=== PATIENT | female | born 1960 | race Caucasian/White ===

== ENCOUNTER 2018-01-18 06:45 | Day surgery (SDC) | payer OTHER ==
[~2018-01-18] VITALS: Ht 162.6 cm; Wt 77.9 kg
[~2018-01-18 06:45] MED LIST: No meds per pt.
[2018-01-18] MEDS ORDERED: EPINEPHRINE 1 MG/ML, 1ML ONE (06:50)
[2018-01-18] MEDS ORDERED: BUPIVACAINE/PF 0.25% ONE (06:50)
[2018-01-18] MEDS ORDERED: HEPARIN 1,000 UNITS/ML, 10ML ONE (06:50)
[2018-01-18] MEDS ORDERED: LIDOCAINE-MPF 1%, 2ML ONE (07:40)
[2018-01-18 07:54] VITALS: BP 130/81
[2018-01-18] MEDS ORDERED: ACETAMINOPHEN 500 MG TABLET PO ONE (08:00)
[2018-01-18] MEDS ORDERED: OxyconTIN ER 20 MG TAB.ER PO ONE (08:00)
[2018-01-18] MEDS ORDERED: GABAPENTIN 300 MG CAPSULE PO ONE (08:00)
[2018-01-18] MEDS ORDERED: LACTATED RINGERS 1,000 ML IV SCH (08:05)
[2018-01-18] MEDS ORDERED: MIDAZOLAM 1 MG/ML, 2ML ONE (08:07)
[2018-01-18] MEDS ORDERED: SUCCINYLCHOLINE 20 MG/ML, 10ML ONE (08:08)
[2018-01-18] MEDS ORDERED: FENTANYL PF 250 MCG/5ML ONE (08:08)
[2018-01-18] MEDS ORDERED: GLYCOPYRROLATE 0.2MG/1ML, 5ML ONE (08:08)
[2018-01-18] MEDS ORDERED: PROPOFOL 10 MG/ML, 20ML ONE (08:08)
[2018-01-18] MEDS ORDERED: ONDANSETRON 2MG/ML, 2ML ONE (08:08)
[2018-01-18] MEDS ORDERED: ROCURONIUM 10MG/ML,5ML ONE (08:08)
[2018-01-18] MEDS ORDERED: DEXAMETHASONE 4 MG/ML, 1ML ONE (08:08)
[2018-01-18] MEDS ORDERED: NEOSTIGMINE 1 MG/ML, 10ML ONE ×2 (08:08→10:55)
[2018-01-18] MEDS ORDERED: CEFAZOLIN 1,000 MG ONE (08:08)
[2018-01-18] MEDS ORDERED: OxyconTIN ER 20 MG TAB.ER ONE (08:11)
[2018-01-18] MEDS ORDERED: ACETAMINOPHEN 500 MG TABLET ONE (08:11)
[2018-01-18] MEDS ORDERED: GABAPENTIN 300 MG CAPSULE ONE (08:12)
[2018-01-18] MEDS ORDERED: LIDOCAINE-MPF 1%, 2ML INFIL ONE (08:30)
[2018-01-18] MEDS ORDERED: LIDOCAINE 4%, 4 ML SYR/CANN TP ONE (08:47)
[2018-01-18] MEDS ORDERED: FENTANYL PF 100 MCG/2ML IV PRN (09:00)
[2018-01-18] MEDS ORDERED: MEPERIDINE/PF 25MG/0.5ML IVPush PRN (09:00)
[2018-01-18] MEDS ORDERED: PROMETHAZINE 25 MG/ML, 1ML IV PRN (09:00)
[2018-01-18] MEDS ORDERED: morphine SULFATE 10 MG/ML, 1ML IV PRN (09:00)
[2018-01-18] MEDS ORDERED: OXYcodone 5 MG/5 ML ORAL.SOL UDC PO PRN (09:00)
[2018-01-18] MEDS ORDERED: ONDANSETRON 2MG/ML, 2ML IVPush PRN (09:00)
[2018-01-18] MEDS ORDERED: FENTANYL PF 100 MCG/2ML ONE (09:57)
[2018-01-18] MEDS ORDERED: GLYCOPYRROLATE 0.4 MG/2 ML, 2ML ONE (10:55)
== END 2018-01-18 15:55 ==
LOC: OUT 06:45
PROVIDERS: ATTEND Specialist
DX: N92.1 Excessive and frequent menstruation with irregular cycle (principal); D25.9 Leiomyoma of uterus, unspecified; N94.6 Dysmenorrhea, unspecified; N94.9 Unspecified condition associated with female genital organs and menstrual cycle; N93.9 Abnormal uterine and vaginal bleeding, unspecified
CPT/HCPCS: 36415; 58552; 74018; 86850; 86900; 86923; 88307; J0171; J0330; J0690; J1100; J2250; J2405; J2704; J2710; J3010; J3490; J7120; J1644

== ENCOUNTER → 2018-09-09 | Outpatient (CLI) | payer OTHER ==
[~2018-09-09] MED LIST changes: +ESTR1PAT25 TD
== END | disposition home or self-care (01) ==
LOC: STAR 09:56
PROVIDERS: ATTEND Podiatrist Foot & Ankle Surgery
DX: Z02.9 Encounter for administrative examinations, unspecified (principal)

== ENCOUNTER 2018-09-17 08:00 | Day surgery (SDC) | payer OTHER ==
[~2018-09-17] VITALS: Ht 162.6 cm; Wt 80.0 kg
[2018-09-17] MEDS ORDERED: DIAZEPAM 5 MG TABLET PO ONE (08:30)
[2018-09-17] MEDS ORDERED: ONDANSETRON ODT 8 MG PO ONE (08:30)
[2018-09-17] MEDS ORDERED: GABAPENTIN 300 MG CAPSULE PO ONE (08:30)
[2018-09-17] MEDS ORDERED: ACETAMINOPHEN 500 MG TABLET PO ONE (08:30)
[2018-09-17] MEDS ORDERED: LACTATED RINGERS 1,000 ML IV SCH (08:31)
[2018-09-17 08:40] VITALS: BP 115/77
[2018-09-17] MEDS ORDERED: FENTANYL PF 100 MCG/2ML ONE (08:44)
[2018-09-17] MEDS ORDERED: MIDAZOLAM 1 MG/ML, 2ML ONE (08:44)
[2018-09-17] MEDS ORDERED: BUPIVACAINE/PF-EPI 0.5% 1:200K ONE (09:28)
[2018-09-17] MEDS ORDERED: PROMETHAZINE 25 MG/ML, 1ML IV PRN (10:30)
[2018-09-17] MEDS ORDERED: FENTANYL PF 100 MCG/2ML IV PRN (10:30)
[2018-09-17] MEDS ORDERED: OXYcodone 5 MG/5 ML ORAL.SOL UDC PO PRN (10:30)
[2018-09-17] MEDS ORDERED: SCOPOLAMINE PATCH, 1.5MG PATCH.TD72 TD PRN (10:30)
[2018-09-17] MEDS ORDERED: METOPROLOL 1 MG/ML, 5ML IV PRN (10:30)
[2018-09-17] MEDS ORDERED: hydrALAzine 20 MG/ML, 1ML IV PRN (10:30)
[2018-09-17] MEDS ORDERED: MIDAZOLAM 1 MG/ML, 2ML IV PRN (10:30)
[2018-09-17] MEDS ORDERED: HYDROmorphone 2 MG/ML, 1ML IVPush PRN (10:30)
[2018-09-17] MEDS ORDERED: ALBUTEROL/IPRATROPIUM 2.5MG/0.5MG, 3 ML NPPB PRN (10:30)
[2018-09-17] MEDS ORDERED: MEPERIDINE/PF 25MG/0.5ML IVPush PRN (10:30)
[2018-09-17] MEDS ORDERED: ONDANSETRON 2MG/ML, 2ML IV PRN (10:30)
[2018-09-17] MEDS ORDERED: CEFAZOLIN 1,000 MG ONE (11:08)
[2018-09-17] MEDS ORDERED: DEXAMETHASONE 4 MG/ML, 1ML ONE (11:08)
[2018-09-17] MEDS ORDERED: BUPIVACAINE/PF 0.5% ONE (11:08)
[2018-09-17] MEDS ORDERED: PROPOFOL 10 MG/ML, 20ML ONE (11:08)
[2018-09-17] MEDS ORDERED: LIDOCAINE-MPF 2% ,5ML ONE (11:08)
== END 2018-09-17 13:00 | disposition home or self-care (01) ==
LOC: OUT 08:00
PROVIDERS: ATTEND Podiatrist Foot & Ankle Surgery
DX: M21.41 Flat foot [pes planus] (acquired), right foot (principal); M21.6X1 Other acquired deformities of right foot; M20.11 Hallux valgus (acquired), right foot
CPT/HCPCS: 27687; 28296; 28300; 64445; 64447; 73620; 76001; C1713; C1776; J0690; J1100; J2250; J2704; J3010; J3490; J7120; Q0162